=== PATIENT | female | born 1985 | race Caucasian/White ===

== ENCOUNTER 2017-04-01 08:59 | Emergency (ER) | payer OTHER ==
[~2017-04-01] VITALS: Ht 167.6 cm; Wt 153.9 kg
[2017-04-01] MEDS ORDERED: IBUP-1022 PO (09:14)
[2017-04-01] MEDS ORDERED: JOLETAB PO (09:14)
[2017-04-01] MEDS ORDERED: MORPHINE 4 MG/ML 1ML SYRINGE IV ONE (09:30)
[2017-04-01] MEDS ORDERED: ONDANSETRON 4MG/2ML VIAL (J2405) IV ONE (09:30)
[2017-04-01 09:45] LABS: BASO # 0.1 10^3/uL (0.0-0.2); BASO % 0.8 % (0.0-1.0); EOS # 0.1 10^3/uL (0.0-0.50); EOS % 0.8 % (0.0-3.0); IMMATURE GRANULOCYTE % 0.4 % (0-0); LYMPH # 1.9 10^3/uL (1.5-4.5); LYMPH % 23.5 % (24.0-44.0); MEAN CORPUSCULAR HEMOGLOBIN 29.1 pg (27.0-33.0); MEAN CORPUSCULAR VOLUME 88.2 fl (80.0-96.0); MONO # 0.5 10^3/uL (0.0-0.8); MONO % 6.3 % (0.0-5.0); NEUTROPHILS # 5.6 10^3/uL (1.8-7.7); NEUTROPHILS % 68.2 % (36.0-66.0); PLATELET COUNT, AUTOMATED 328 10^3/uL (150-450); RED CELL DISTRIBUTION WIDTH 12.9 % (11.5-14.5); WHITE BLOOD COUNT 8.2 10^3/uL (4.0-10.0)
[2017-04-01 09:53] LABS: MUCUS, URINE RFX SMALL (NEGATIVE); SPECIFIC GRAVITY UR AUTO RFX 1.025 (1.002-1.035); SQUAM EPITHELIAL CELL UR AURFX 3 /HPF (0-6)
[2017-04-01 10:05] LABS: ANION GAP 10 MEQ/L (8-16); BLOOD UREA NITROGEN 16 MG/DL (7-18); CARBON DIOXIDE LEVEL 25 MEQ/L (21-32); CHLORIDE LEVEL 106 MEQ/L (98-107); CREATININE FOR GFR 0.85 MG/DL (0.55-1.02); GLOMERULAR FILTRATION RATE > 60.0 (>60); GLUCOSE, FASTING 106 MG/DL (70-105); POTASSIUM SERUM 4.2 MEQ/L (3.5-5.1); SODIUM LEVEL 141 MEQ/L (136-145)
--- NOTE | 2017-04-01 10:11 | REP ---
CT abdomen and pelvis without IV or oral contrast: History: Left flank pain. Likely stone. No comparison study. Findings: Legal Cashier views of the abdomen demonstrate an unremarkable bowel gas pattern. The lung bases are clear. The liver and the spleen are normal in size, homogeneous in texture. No adrenal lesion is seen. Pancreas is unremarkable. The gallbladder shows no abnormality. There is moderate hydronephrosis of the left kidney. There is mild hydroureter. A distal ureteral calculus is seen just above the ureterovesical junction measuring 3 mm in diameter. No right ureteral stone is seen. No intrarenal calculus is noted on either side. No abdominal wall defect is seen. No bony destructive lesion is appreciated. A normal appendix is seen. Impression: 3 mm obstructive calculus left distal ureter just above the ureterovesical junction with mild left-sided hydronephrosis. Signed by Abimael Silva MD 04/01/2017 03:55 P
[2017-04-01] MEDS ORDERED: HYDROmorphone HCL 1 MG/ML SYRINGE (J1170) IV ONE (10:15)
[2017-04-01] MEDS ORDERED: PERC5TAB12 PO (10:51)
[2017-04-01] MEDS ORDERED: NAPR500T PO (10:51)
[2017-04-01] MEDS ORDERED: ZOFR4TAB3 PO (10:51)
[2017-04-01] MEDS ORDERED: FLOM5CAP PO (10:51)
[2017-04-01 11:21] VITALS: BP 168/85
== END 2017-04-01 11:24 | disposition home or self-care (01) ==
LOC: M ED 08:59
DX: N13.30 Unspecified hydronephrosis (principal); N20.1 Calculus of ureter; Z88.8 Allergy status to other drugs, medicaments and biological substances
CPT/HCPCS: 74176; 80048; 81001; 81025; 85025; 86140; 96374; 96375; 99284; J1170; J2405

== ENCOUNTER → 2017-04-14 | Outpatient (REF) | payer OTHER ==
[2017-04-14 13:44] LABS: APPEARANCE, URINE HAZY (CLEAR); BACTERIA, URINE AUTO NEGATIVE (NEGATIVE); BILIRUBIN, URINE AUTO NEGATIVE (NEGATIVE); BLOOD, URINE BLOOD NEGATIVE (NEGATIVE); COLOR, URINE YELLOW (YELLOW); GLUCOSE, URINE (UA) AUTO NEGATIVE (NEGATIVE); KETONE, URINE AUTO NEGATIVE (NEGATIVE); LEUKOCYTE ESTERASE, URINE AUTO 1+ (NEGATIVE); NITRITE, URINE AUTO NEGATIVE (NEGATIVE); PROTEIN, URINE AUTO NEGATIVE (NEGATIVE); RBC, URINE AUTO 1 /HPF (0-3); SQUAMOUS EPITHELIAL CELL UR AU 3 /HPF (0-6); UROBILINOGEN, URINE AUTO 0.2 mg/dL (0.0-2.0); WBC, URINE AUTO 2 /HPF (0-3)
== END ==
LOC: M SMT 13:10
DX: N13.2 Hydronephrosis with renal and ureteral calculous obstruction (principal)

== ENCOUNTER 2017-11-28 18:55 | Emergency (ER) | payer OTHER ==
[2017-11-28 19:39] LABS: BASO # 0.1 10^3/uL (0.0-0.2); BASO % 0.6 % (0.0-1.0); EOS # 0.2 10^3/uL (0.0-0.50); EOS % 1.8 % (0.0-3.0); HEMATOCRIT 44.1 % (36.0-47.0); HEMOGLOBIN 14.6 g/dl (12.0-15.5); IMMATURE GRANULOCYTE % 0.3 % (0-3.0); LYMPH # 2.4 10^3/uL (1.5-4.5); LYMPH % 25.2 % (24.0-44.0); MEAN CORPUSCULAR HEMOGLOBIN 29.5 pg (27.0-33.0); MEAN CORPUSCULAR HGB CONC 33.1 g/dl (32.0-36.5); MEAN CORPUSCULAR VOLUME 89.1 fl (80.0-96.0); MONO # 0.7 10^3/uL (0.0-0.8); NEUTROPHILS # 6.2 10^3/uL (1.8-7.7); NEUTROPHILS % 65.1 % (36.0-66.0); PLATELET COUNT, AUTOMATED 299 10^3/uL (150-450); RED BLOOD COUNT 4.95 10^6/uL (4.00-5.40); WHITE BLOOD COUNT 9.5 10^3/uL (4.0-10.0)
[2017-11-28 19:40] LABS: CONTROL LINE UCG INT CTR LINE PRESENT; URINE PREG TEST NEGATIVE (NEGATIVE)
[2017-11-28 19:43] LABS: KETONE, URINE AUTO RFX NEGATIVE (NEGATIVE); LEUKOCYTE ESTERASE UR AUTO RFX NEGATIVE (NEGATIVE); NITRITE, URINE AUTO RFX NEGATIVE (NEGATIVE); RBC, URINE AUTO RFX 0 /HPF (0-3); SPECIFIC GRAVITY UR AUTO RFX 1.002 (1.002-1.035); SQUAM EPITHELIAL CELL UR AURFX 1 /HPF (0-6); WBC, URINE AUTO RFX 0 /HPF (0-3)
[2017-11-28] MEDS: ONDANSETRON 4MG/2ML VIAL (J2405) IV (19:45)
[2017-11-28] MEDS: KETOROLAC 30 MG/ML VIAL (J1885) IV (20:00)
[2017-11-28 20:03] LABS: ANION GAP 7 MEQ/L (8-16); BLOOD UREA NITROGEN 13 MG/DL (7-18); CALCIUM LEVEL 8.5 MG/DL (8.5-10.1); CARBON DIOXIDE LEVEL 27 MEQ/L (21-32); CHLORIDE LEVEL 107 MEQ/L (98-107); CREATININE FOR GFR 0.74 MG/DL (0.55-1.30); GLOMERULAR FILTRATION RATE > 60.0 (>60); GLUCOSE, FASTING 97 MG/DL (70-100); POTASSIUM SERUM 3.7 MEQ/L (3.5-5.1); SODIUM LEVEL 141 MEQ/L (136-145)
[2017-11-28 20:06] LABS: CONTROL LINE HCG INT CTR LINE PRESENT; HCG, SERUM QUALITATIVE NEGATIVE (NEGATIVE)
[2017-11-28] MEDS ORDERED: ISOVUE-370 76% 100ML VIAL (Q9967) As Ordered (21:59)
[2017-11-28] MEDS: MORPHINE 4 MG/ML 1ML VIAL/SYRINGE (J2270) IV (22:00)
[2017-11-29] MEDS: PERCOCET 5MG/325MG TAB PO (00:18)
== END 2017-11-29 00:15 | disposition home or self-care (01) ==
LOC: M ED 11-29 00:15
DX: M54.5 Low back pain (principal); R91.1 Solitary pulmonary nodule; R59.0 Localized enlarged lymph nodes; R03.0 Elevated blood-pressure reading, without diagnosis of hypertension; R35.8 Other polyuria; Z87.442 Personal history of urinary calculi; Z79.3 Long term (current) use of hormonal contraceptives; Z88.8 Allergy status to other drugs, medicaments and biological substances
CPT/HCPCS: J2270